=== PATIENT | female | born 1960 | race Caucasian/White ===

== ENCOUNTER 2017-03-07 23:04 | Emergency (ER) | payer OTHER ==
[~2017-03-07] VITALS: Ht 160 cm; Wt 83.9 kg
--- NOTE | 2017-03-07 23:45 | NUR ---
IV STARTED IN LAC. 18G.
[2017-03-07 23:54] LABS: BASOPHILS % (AUTO) 0.5 % (0.0-2.0); EOSINOPHILS # (AUTO) 0.1 /CMM (0.0-0.7); EOSINOPHILS % (AUTO) 1.6 % (0.0-6.0); HEMATOCRIT 42 % (33-45); HEMOGLOBIN 14.1 g/dL (11.5-14.8); LYMPHOCYTES # (AUTO) 1.8 /CMM (0.8-4.8); LYMPHOCYTES % (AUTO) 23.1 % (20.0-44.0); MEAN CORPUSCULAR HEMOGLOBIN 29 PG (26.0-33.0); MEAN CORPUSCULAR HGB CONC 34 g/dl (31.0-36.0); MEAN CORPUSCULAR VOLUME 87 fL (82-100); MONOCYTES # (AUTO) 0.6 /CMM (0.1-1.30); MONOCYTES % (AUTO) 7.3 % (2.0-12.0); NEUTROPHILS # (AUTO) 5.3 /CMM (1.8-8.9); NEUTROPHILS % (AUTO) 67.5 % (43.0-81.0); PLATELET COUNT (AUTO) 249 /CMM (150-450); RDW COEFFICIENT OF VARIATION 13.7 (11.5-15.0); RED BLOOD CELL COUNT(AUTO) 4.83 MIL/uL (4.0-5.2); WHITE BLOOD COUNT (AUTO) 7.9 K/uL (4.3-11.0)
[2017-03-07 23:58] LABS: APPEARANCE,URINE SL CLOUDY (CLEAR); BILIRUBIN,URINE NEGATIVE (NEGATIVE); BLOOD, URINE 2+ Ery/uL (NEGATIVE); COLOR,URINE YELLOW (YELLOW); KETONES,URINE NEGATIVE (NEGATIVE); LEUKOCYTE ESTERASE ,URINE 1+ (NEGATIVE); NITRITE, URINE NEGATIVE (NEGATIVE); PROTEIN,URINE NEGATIVE (NEGATIVE); UGLUCOSE NEGATIVE (NEGATIVE); UROBILINOGEN,URINE 0.2 EU/dL (0.2)
[2017-03-08] MEDS ORDERED: MORPHINE SULFATE INJ 2 MG/ML DISP.SYRIN IV ONE
[2017-03-08] MEDS ORDERED: IV NS 0.9% 500 ML BAG IV ONE
[2017-03-08] MEDS ORDERED: ONDANSETRON HCL/PF 4 MG/2 ML VIAL IVP ONE
[2017-03-08 00:02] LABS: ADD URINE CULTURE YES; BACTERIA,URINE 3+ /HPF (None Seen); RBC,URINE 21-50 /HPF (0-2); SQUAMOUS EPITHELIAL CELL,UR Few /HPF (None Seen); WBC,URINE 81-100 /HPF (0-3)
[2017-03-08 00:09] LABS: CALCIUM, SERUM 8.5 mg/dL (8.5-10.1); CARBON DIOXIDE 29 mmol/L (21-32); CHLORIDE 107 mmol/L (98-107); CREATININE 0.8 mg/dL (0.6-1.3); GFR 74 mL/min (>60); GLUCOSE 173 mg/dL (74-106); POTASSIUM 3.4 mmol/L (3.5-5.1); SODIUM SERUM 143 mmol/L (136-145); UREA NITROGEN, BLOOD 15 mg/dL (7-18)
--- NOTE | 2017-03-08 00:10 | NUR ---
PT RETURNED FROM CT AND WENT TO BED #8.
[2017-03-08 00:15] LABS: ALANINE AMINOTRANSFERASE 33 U/L (12-78); ALBUMIN 3.6 g/dL (3.4-5.0); ALKALINE PHOSPHATASE 87 U/L (46-116); ASPARTATE AMINOTRANSFERASE 24 U/L (15-37); BILIRUBIN,TOTAL 0.2 mg/dL (0.2-1.0); LIPASE 169 U/L (73-393); TOTAL PROTEIN, SERUM 7.1 g/dL (6.4-8.2)
[2017-03-08 00:20] LABS: TROPONIN I < 0.017 ng/mL (0.00-0.056)
[2017-03-08] MEDS ORDERED: MORPHINE SULFATE INJ 4 MG/ML DISP.SYRIN ONE (00:31)
[2017-03-08] MEDS ORDERED: ONDANSETRON HCL/PF 4 MG/2 ML VIAL ONE (00:31)
[2017-03-08] MEDS ORDERED: IV NS 0.9% 500 ML IV ONE (00:31)
[2017-03-08] MEDS ORDERED: IV SET PRIMARY 1 EA INFUS.SET MC ONE (00:31)
--- NOTE | 2017-03-08 00:46 | NUR ---
Zak balderas in ED - 03/08/17 at 0047 by [email or web address] PT RETURNED FROM CT.
--- NOTE | 2017-03-08 01:06 | NUR ---
IV removed. Catheter intact and site benign. Pressure and 4x4 applied to site. No bleeding noted. Patient discharged to home in stable condition. Written and verbal after care instructions given. Patient verbalizes understanding of instruction AND RX. PT LEFT VIA WC.
[2017-03-08 01:08] VITALS: BP 127/63
== END 2017-03-08 01:08 | disposition home or self-care (01) ==
LOC: ER 23:04
DX: N39.0 Urinary tract infection, site not specified (principal); I10 Essential (primary) hypertension; Z90.49 Acquired absence of other specified parts of digestive tract
CPT/HCPCS: 36415; 76705-TC; 80048-TC; 80076-TC; 81000-TC; 83690-TC; 84484-TC; 85025-TC; 87086-TC; 87186-TC; A4606; J2270; J2405; J7040; Z7610

== ENCOUNTER 2020-11-26 13:59 | Inpatient (IN) | payer OTHER ==
[~2020-11-26] VITALS: Ht 152.4 cm; Wt 85.9 kg
--- NOTE | 2020-11-26 14:40 | NUR ---
BIBDAUGHTER C/O SOB, CP RAD TO MID BACK, COUGH. COVID+ 11/17/20. PATIENT A/OX4, BELARUSIAN SPEAKING. BREATHING SLIGHTLY RAPID, ON ROOM AIR WITH 88%, PLACED ON 2LPM VIA NC WITH SPO2 OF 93%. NO DISTRESS NOTED. NEEDS ATTENDED.
--- NOTE | 2020-11-26 14:50 | NUR ---
IV LINE ESTABLISHED, BLOOD DRAWN AND SENT TO LAB.
[2020-11-26] MEDS ORDERED: DEXAMETHASONE SOD PHOSPHATE 10 MG/ML VIAL IV ONE (15:00)
[2020-11-26] MEDS ORDERED: METF-881 PO (15:03)
[2020-11-26] MEDS ORDERED: ATOR20TA PO (15:03)
[2020-11-26] MEDS ORDERED: LISI10TA29 PO (15:03)
[2020-11-26 15:06] LABS: BASOPHILS % (AUTO) 0.1 % (0.0-2.0); HEMATOCRIT 43 % (33-45); HEMOGLOBIN 14.9 g/dL (11.5-14.8); LYMPHOCYTES # (AUTO) 0.6 /CMM (0.8-4.8); LYMPHOCYTES % (AUTO) 12.6 % (20.0-44.0); MEAN CORPUSCULAR HGB CONC 35 g/dl (31.0-36.0); MEAN CORPUSCULAR VOLUME 87 fL (82-100); MONOCYTES # (AUTO) 0.3 /CMM (0.1-1.30); MONOCYTES % (AUTO) 6.1 % (2.0-12.0); NEUTROPHILS # (AUTO) 4.1 /CMM (1.8-8.9); NEUTROPHILS % (AUTO) 81.2 % (43.0-81.0); PLATELET COUNT (AUTO) 163 /CMM (150-450); RED BLOOD CELL COUNT(AUTO) 4.88 MIL/uL (4.0-5.2)
--- NOTE | 2020-11-26 15:19 | NUR ---
GAVE MOVESHEET AND CLINICALS TO ADMITTING FOR INSURANCE
[2020-11-26 15:24] LABS: CARBON DIOXIDE 30 mmol/L (21-32); CHLORIDE 100 mmol/L (98-107); CREATININE 0.6 mg/dL (0.6-1.3); GLUCOSE 203 mg/dL (74-106); POTASSIUM 3.5 mmol/L (3.5-5.1); SODIUM SERUM 138 mmol/L (136-145); UREA NITROGEN, BLOOD 6 mg/dL (7-18)
[2020-11-26] MEDS ORDERED: CEFTRIAXONE 1GM BAG (ER ONLY) 50 ML IV ONE (15:26)
[2020-11-26] MEDS ORDERED: DEXAMETHASONE SOD PHOSPHATE 10 MG/ML VIAL ONE (15:26)
[2020-11-26 15:29] LABS: BILIRUBIN,URINE NEGATIVE (NEGATIVE); COLOR,URINE YELLOW (YELLOW); LEUKOCYTE ESTERASE ,URINE NEGATIVE (NEGATIVE); NITRITE, URINE NEGATIVE (NEGATIVE); PROTEIN,URINE NEGATIVE (NEGATIVE); UGLUCOSE NEGATIVE (NEGATIVE); UROBILINOGEN,URINE 0.2 EU/dL (0.2)
[2020-11-26] MEDS ORDERED: IV NS 0.9% 1,000 ML BAG IV ONE (15:30)
[2020-11-26] MEDS ORDERED: CEFTRIAXONE 1 G in IV D5W 50 ML IV ONE (15:30)
[2020-11-26] MEDS ORDERED: AZITHROMYCIN 500 MG in IV D5W 250 ML IV ONE (15:30)
[2020-11-26 15:34] LABS: D-DIMER 0.6 mg/L(FEU (0.17-0.50)
[2020-11-26 15:37] LABS: ALANINE AMINOTRANSFERASE 47 U/L (12-78); ALBUMIN 3.4 g/dL (3.4-5.0); ALKALINE PHOSPHATASE 85 U/L (46-116); ASPARTATE AMINOTRANSFERASE 29 U/L (15-37); BILIRUBIN,TOTAL 0.4 mg/dL (0.2-1.0); TOTAL PROTEIN, SERUM 7.5 g/dL (6.4-8.2)
[2020-11-26 15:38] LABS: WBC,URINE 0-2 /HPF (0-3)
[2020-11-26 15:39] LABS: BACTERIA,URINE None seen /HPF (None Seen)
[2020-11-26 16:02] LABS: B-TYPE NATRIURETIC PEPTIDE 57 PG/ML (0-125)
[2020-11-26 17:24] LABS: FERRITIN 973 ng/mL (8-388)
[2020-11-26] MEDS ORDERED: ONDANSETRON HCL/PF 4 MG/2 ML VIAL IVP PRN (18:00)
[2020-11-26] MEDS ORDERED: ACETAMINOPHEN 325 MG TABLET PO PRN (18:00)
[2020-11-26] MEDS ORDERED: ALBUTEROL SULFATE 8 GM HFA.AER.AD IH PRN (18:00)
[2020-11-26] MEDS ORDERED: ENOXAPARIN SODIUM 40 MG/0.4 ML DISP.SYRIN SQ SCH (18:30)
[2020-11-26] MEDS ORDERED: DEXTROSE 50%-WATER 50 ML DISP.SYRIN IV PRN (18:30)
[2020-11-26] MEDS ORDERED: ENOXAPARIN SODIUM 40 MG/0.4 ML DISP.SYRIN SQ ONE (18:38)
--- NOTE | 2020-11-26 19:00 | NUR ---
PER LAB COVID RESULT POSITIVE.
[2020-11-26] MEDS ORDERED: HYDROCODONE/APAP 5/325MG TABLET ONE (19:20)
[2020-11-26] MEDS: HYDROCODONE/APAP 5/325MG TABLET PO PRN (19:26)
--- NOTE | 2020-11-26 20:10 | NUR ---
PT WAS PLACED ON 2L NC, SAT 94%. PLACED ON 4L NC NOW SAT 100%.
[2020-11-26] MEDS: BLOOD SUGAR DIAGNOSTIC 1 EACH STRIP IN SCH (21:27)
[2020-11-26] MEDS ORDERED: INSULIN REGULAR, HUMAN 100 UNIT/ML 10 ML VIAL ONE (21:29)
[2020-11-26] MEDS: INSULIN REGULAR, HUMAN 100 UNIT/ML 3 ML VIAL SQ PRN (21:33)
--- NOTE | 2020-11-27 00:42 | NUR ---
Zak balderas in ED - 11/27/20 at 0312 by EVICTOR PT PULLED OUT IV BY ACCIDENT. NEW LINE ESTABLISHED RAC 20G
--- NOTE | 2020-11-27 03:12 | NUR ---
PT NOTED ASLEEP, VSS.
[2020-11-27 04:57] LABS: BASOPHILS % (AUTO) 0.1 % (0.0-2.0); EOSINOPHILS % (AUTO) 0.1 % (0.0-6.0); HEMATOCRIT 40 % (33-45); HEMOGLOBIN 13.8 g/dL (11.5-14.8); LYMPHOCYTES # (AUTO) 0.9 /CMM (0.8-4.8); MEAN CORPUSCULAR HGB CONC 35 g/dl (31.0-36.0); MEAN CORPUSCULAR VOLUME 87 fL (82-100); MONOCYTES # (AUTO) 0.4 /CMM (0.1-1.30); MONOCYTES % (AUTO) 10.5 % (2.0-12.0); NEUTROPHILS # (AUTO) 2.4 /CMM (1.8-8.9); NEUTROPHILS % (AUTO) 65.3 % (43.0-81.0); PLATELET COUNT (AUTO) 185 /CMM (150-450); RED BLOOD CELL COUNT(AUTO) 4.54 MIL/uL (4.0-5.2); WHITE BLOOD COUNT (AUTO) 3.6 K/uL (4.3-11.0)
[2020-11-27 05:17] LABS: ALBUMIN 2.9 g/dL (3.4-5.0); BILIRUBIN,TOTAL 0.4 mg/dL (0.2-1.0); CALCIUM, SERUM 8.5 mg/dL (8.5-10.1); CREATININE 0.6 mg/dL (0.6-1.3); POTASSIUM 3.9 mmol/L (3.5-5.1); TOTAL PROTEIN, SERUM 6.8 g/dL (6.4-8.2)
--- NOTE | 2020-11-27 05:45 | NUR ---
PT PROVIDED WITH BILLY PIERCE.
[2020-11-27] MEDS: BLOOD SUGAR DIAGNOSTIC 1 EACH STRIP IN SCH ×4 (07:48→22:51)
[2020-11-27] MEDS: INSULIN REGULAR, HUMAN 100 UNIT/ML 3 ML VIAL SQ PRN ×4 (08:04→22:52)
--- NOTE | 2020-11-27 08:04 | NUR ---
PT PROVIDED WITH BREAKFAST
[2020-11-27] MEDS ORDERED: DEXAMETHASONE SOD PHOSPHATE 10 MG/ML VIAL ONE (08:14)
[2020-11-27] MEDS ORDERED: DOXYCYCLINE HYCLATE (100 MG) 100 MG TABLET ONE ×2 (08:15→22:46)
[2020-11-27] MEDS ORDERED: GUAIFENESIN/CODEINE 10 ML UDC PO PRN (08:30)
[2020-11-27] MEDS: DOXYCYCLINE HYCLATE (100 MG) 100 MG TABLET PO SCH ×2 (08:55→22:50)
[2020-11-27] MEDS: DEXAMETHASONE SOD PHOSPHATE 10 MG/ML VIAL IV SCH (08:55)
--- NOTE | 2020-11-27 08:55 | NUR ---
PT IN BED. AAOX4. NOT IN RESP DISTRESS. ON HUMIDIFIED O2 VIA NC @ 6LPM. BREATHING EVEN AND UNLABORED. PT HAD BREAKFAST. MEDICATION GIVEN ORDERED. WILL CONTINUE TO MONITOR
[2020-11-27] MEDS ORDERED: CEFTRIAXONE 1 G in IV D5W 50 ML IV SCH (12:00)
[2020-11-27] MEDS ORDERED: CEFTRIAXONE 1GM BAG (ER ONLY) 50 ML IV ONE (13:32)
[2020-11-27] MEDS ORDERED: ENOXAPARIN SODIUM 40 MG/0.4 ML DISP.SYRIN SQ ONE ×2 (13:34→22:46)
[2020-11-27] MEDS: ENOXAPARIN SODIUM 40 MG/0.4 ML DISP.SYRIN SQ SCH ×2 (13:40→22:46)
[2020-11-27] MEDS ORDERED: REMDESIVIR (CHARGED) 200 MG, *LOADING DOSE 1 EA in IV NS 0.9% 210 ML IV ONE (15:00)
--- NOTE | 2020-11-27 19:45 | NUR ---
PT HERE FOR COVID PNA, REC'D PT IN BED, ON 6L HUMIDIFIED O2 ON NC. SAT ABOVE 92%, NOT IN ANY DISTRESS, SPEAKS IN FULL SENTENCES, DENIES ANY CP, NEEDS MET, WILL CONT TO MONITOR.
[2020-11-28 05:42] LABS: HEMATOCRIT 39 % (33-45); HEMOGLOBIN 13.4 g/dL (11.5-14.8); LYMPHOCYTES # (AUTO) 1.2 /CMM (0.8-4.8); LYMPHOCYTES % (AUTO) 11.4 % (20.0-44.0); MEAN CORPUSCULAR HGB CONC 35 g/dl (31.0-36.0); MEAN CORPUSCULAR VOLUME 87 fL (82-100); MONOCYTES # (AUTO) 0.7 /CMM (0.1-1.30); MONOCYTES % (AUTO) 6.3 % (2.0-12.0); NEUTROPHILS # (AUTO) 8.8 /CMM (1.8-8.9); NEUTROPHILS % (AUTO) 82.3 % (43.0-81.0); PLATELET COUNT (AUTO) 229 /CMM (150-450); RED BLOOD CELL COUNT(AUTO) 4.44 MIL/uL (4.0-5.2); WHITE BLOOD COUNT (AUTO) 10.7 K/uL (4.3-11.0)
[2020-11-28 05:54] LABS: ALBUMIN 2.9 g/dL (3.4-5.0); BILIRUBIN,DIRECT 0.2 mg/dL (0.0-0.2); BILIRUBIN,TOTAL 0.4 mg/dL (0.2-1.0); CALCIUM, SERUM 8.7 mg/dL (8.5-10.1); CREATININE 0.5 mg/dL (0.6-1.3); POTASSIUM 3.5 mmol/L (3.5-5.1); TOTAL PROTEIN, SERUM 6.8 g/dL (6.4-8.2)
--- NOTE | 2020-11-28 06:00 | NUR ---
NO ACUTE EVENTS, VSS, NAD WCTM
--- NOTE | 2020-11-28 07:30 | NUR ---
RECEIVED REPORT FROM JOHNNY VALENTE FOR AKILAH. PT IS AAOX4, NOT IN RESPIRATORY DISTRESS, V/S STABLE, KEPT RESTED AND COMFORTABLE. WILL CONTINUE TO MONITOR.
[2020-11-28] MEDS: BLOOD SUGAR DIAGNOSTIC 1 EACH STRIP IN SCH ×4 (07:56→21:33)
[2020-11-28] MEDS ORDERED: ENOXAPARIN SODIUM 40 MG/0.4 ML DISP.SYRIN SQ ONE (08:16)
[2020-11-28] MEDS ORDERED: DOXYCYCLINE HYCLATE (100 MG) 100 MG TABLET ONE (08:17)
[2020-11-28] MEDS ORDERED: DEXAMETHASONE SOD PHOSPHATE 10 MG/ML VIAL ONE (08:17)
[2020-11-28] MEDS: DOXYCYCLINE HYCLATE (100 MG) 100 MG TABLET PO SCH (08:23)
[2020-11-28] MEDS: DEXAMETHASONE SOD PHOSPHATE 10 MG/ML VIAL IV SCH (08:23)
[2020-11-28] MEDS: ENOXAPARIN SODIUM 40 MG/0.4 ML DISP.SYRIN SQ SCH ×2 (08:24→21:32)
--- NOTE | 2020-11-28 08:55 | NUR ---
SIN MOORE AT BEDSIDE FOR EVAL.
[2020-11-28] MEDS ORDERED: LORAZEPAM INJ 2 MG/ML VIAL IV PRN (09:30)
--- NOTE | 2020-11-28 11:00 | NUR ---
GOT BED 201-
--- NOTE | 2020-11-28 11:13 | NUR ---
REPORT GIVEN TO INDU TURNER FOR AKILAH.
--- NOTE | 2020-11-28 11:32 | NUR ---
PATIENT TRANSFERRED TO ROOM 201 VIA ACLS PROTOCOL, VSS. NO DISTRESS NOTED, ON 3LPM VIA NC.
[2020-11-28 12:00] VITALS: BP 103/69
--- NOTE | 2020-11-28 12:00 | NUR ---
DRAFTER MECHANICAL NOTE RECEIVED PATIENT FROM ER. PATIENT IS ALERT AND ORIENTED X 3. ABLE TO MAKE NEEDS KNOWN. IV ACCESS TO RIGHT AC INTACT AND PATENT. CONTINENT OF BOWEL AND BLADDER. ABLE TO AMBULATE TO RESTROOM WITH MINIMAL ASSIST. CONTINUES ON O2 6L VIA NC WITH NO SIGNS OR SYMPTOMS OF RESPIRATORY DISTRESS. PATIENT ORIENTED TO ROOM AND UNIT. CALL LIGHT WITHIN REACH. ASPIRATION, FALL AND SAFETY PRECAUTIONS MAINTAINED. WILL CONTINUE TO MONITOR.
[2020-11-28] MEDS: INSULIN REGULAR, HUMAN 100 UNIT/ML 3 ML VIAL SQ PRN ×3 (13:02→21:32)
[2020-11-28] MEDS: REMDESIVIR (CHARGED) 100 MG in IV NS 0.9% 100 ML IV SCH (14:23)
[2020-11-28 15:59] VITALS: BP 118/64
[2020-11-28 16:00] VITALS: BP 118/64
--- NOTE | 2020-11-28 18:31 | NUR ---
OIL BURNER SERVICER AND INSTALLER CLOSING NOTE PATIENT IS CURRENTLY SITTING IN BED WHILE WATCHING TV. AWAKE, ALERT AND ORIENTED X 3. ABLE TO MAKE NEEDS KNOWN. NO COMPLAINTS OF PAIN THIS SHIFT. IV ACCESS TO RIGHT AC INTACT AND PATENT. ADMINISTERED REMDESIVIR THIS SHIFT WITH PATIENT TOLERATING WELL. VS: BP 118/64 HR 94 RR 20 T 98.2 O2 SAT 92% ON 6L O2 VIA NC. CALL LIGHT WITHIN REACH. ASPIRATION, FALL AND SAFETY PRECAUTIONS MAINTAINED. WILL ENDORSE PLAN OF CARE TO ONCOMING SHIFT.
--- NOTE | 2020-11-28 19:30 | NUR ---
TELE/RN OPENING NOTES RECEIVED PATIENT IN BED RESTING. PATIENT IS ALERT AND ORIENTED X 4. PATIENT BREATHING IS EVEN AND UNLABORED. NO SIGNS OF SOB OR RESPIRATORY DISTRESS NOTED. PATIENT PATIENT HAS IV ACCESS ON RIGHT AC #20G INTACT. SAFETY MEASURES ARE IN PLACE, BED IS LOCKED AND PLACED IN THE LOWEST POSITION, CALL LIGHT IS WITHIN REACH. WILL CONTINUE TO MONITOR THROUGH OUT SHIFT.
[2020-11-28 20:00] VITALS: BP 123/66
[2020-11-28] MEDS: TEMAZEPAM 15 MG CAPSULE PO PRN (21:31)
--- NOTE | 2020-11-28 21:40 | NUR ---
TELE/RN NOTES PATIENT REQUESTING FOR SLEEPING AID. PATIENT GIVEN RESTORIL 15 MG PO. WILL CONTINUE TO MONITOR.
[2020-11-29] VITALS (9 sets, daily range): BP systolic 128–162; BP diastolic 63–86
[2020-11-29] MEDS: HYDROCODONE/APAP 5/325MG TABLET PO PRN (03:58)
--- NOTE | 2020-11-29 04:00 | NUR ---
TELE/RN NOTES PATIENT STATING PAIN AND DISCOMFORT. PATIENT GIVEN NORCO 5 MG PO. WILL CONTINUE TO MONITOR.
[2020-11-29] MEDS: BLOOD SUGAR DIAGNOSTIC 1 EACH STRIP IN SCH ×4 (06:35→21:53)
[2020-11-29] MEDS: INSULIN REGULAR, HUMAN 100 UNIT/ML 3 ML VIAL SQ PRN ×4 (06:36→22:00)
--- NOTE | 2020-11-29 06:40 | NUR ---
TELE/RN CLOSING NOTES PATIENT IN BED RESTING. PATIENT IS ALERT AND ORIENTED X 4. PATIENT BREATHING IS EVEN AND UNLABORED. NO SIGNS OF SOB OR RESPIRATORY DISTRESS NOTED. TELE READING SR 71. PATIENT PATIENT HAS IV ACCESS ON RIGHT AC #20G INTACT. ALL NEEDS HAVE BEEN MET DURING SHIFT. SAFETY MEASURES ARE IN PLACE, BED IS LOCKED AND PLACED IN THE LOWEST POSITION, CALL LIGHT IS WITHIN REACH. WILL ENDORSE CARE TO DAY SHIFT NURSE.
--- NOTE | 2020-11-29 07:30 | NUR ---
AESTHETICS INSTRUCTOR OPENING NOTES RECEIVED PT ON BED, AAOX4, RWANDAN/ARMENIAN SPEAKING. RESPIRATION EVEN AND UNLABORED AT REST, WITH SOB IN EXERTION LIKE AMBULATION AND TRANSFER TO THE BATHROOM. PT ON 8LPM VIA N/C, TOLERATING WELL AT 93%. ABD SOFT AND NON DISTENDED WITH ACTIVE BOWEL SOUNDS. PT C/O GENERALIZED PAIN 04/08, DECLINED PAIN MEDICATION AND STATED SHE IS ABLE TO TOLERATE THE PAIN. SKIN WARM TO TOUCH AND DRY. IV SITE AT RAC PATENT IN FLUSHING, NO S/X OF INFILTRATION ON SITE. TELE MONITOR SHOWS SR 69. ON CONTACT/DROPLET ISOLATION DUE TO COVID-19 POSITIVE. BED IN LOW LOCKED POSITION, SRX2 UP FOR SAFETY, BLE OFFLOAD, CALL LIGHT WITHIN REACH. WILL CONTINUE TO EVALUATE CARE.
[2020-11-29 07:39] LABS: BASOPHILS % (AUTO) 0.1 % (0.0-2.0); HEMATOCRIT 39 % (33-45); HEMOGLOBIN 13.7 g/dL (11.5-14.8); LYMPHOCYTES % (AUTO) 10.4 % (20.0-44.0); MEAN CORPUSCULAR HGB CONC 35 g/dl (31.0-36.0); MEAN CORPUSCULAR VOLUME 87 fL (82-100); MONOCYTES # (AUTO) 0.8 /CMM (0.1-1.30); MONOCYTES % (AUTO) 8.6 % (2.0-12.0); NEUTROPHILS # (AUTO) 7.6 /CMM (1.8-8.9); NEUTROPHILS % (AUTO) 80.9 % (43.0-81.0); PLATELET COUNT (AUTO) 261 /CMM (150-450); RED BLOOD CELL COUNT(AUTO) 4.49 MIL/uL (4.0-5.2); WHITE BLOOD COUNT (AUTO) 9.4 K/uL (4.3-11.0)
[2020-11-29] MEDS: DEXAMETHASONE SOD PHOSPHATE 10 MG/ML VIAL IV SCH (08:04)
[2020-11-29] MEDS: ENOXAPARIN SODIUM 40 MG/0.4 ML DISP.SYRIN SQ SCH ×2 (08:04→20:22)
[2020-11-29 08:13] LABS: ALBUMIN 2.7 g/dL (3.4-5.0); BILIRUBIN,DIRECT 0.1 mg/dL (0.0-0.2); BILIRUBIN,TOTAL 0.5 mg/dL (0.2-1.0); CALCIUM, SERUM 8.4 mg/dL (8.5-10.1); CREATININE 0.6 mg/dL (0.6-1.3); POTASSIUM 3.5 mmol/L (3.5-5.1); TOTAL PROTEIN, SERUM 6.4 g/dL (6.4-8.2)
[2020-11-29 08:32] LABS: C-REACTIVE PROTEIN 5.5 mg/dL (0.0-0.9)
--- NOTE | 2020-11-29 10:30 | NUR ---
GUIDE FOREIGN TOUR NOTES TITRATED O2 FROM 8 TO 6LPM VIA N/C, PT SATING 93%, DENIES SOB. DENIES PAIN. WILL CONT TO MONITOR.
--- NOTE | 2020-11-29 11:20 | NUR ---
CLINICAL ENGINEERING MANAGER NOTES PT SEEN AND EVALUATED BY DR MOORE. NO NEW ORDER. WILL CONTINUE TO MONITOR.
[2020-11-29] MEDS: REMDESIVIR (CHARGED) 100 MG in IV NS 0.9% 100 ML IV SCH (15:38)
--- NOTE | 2020-11-29 19:03 | NUR ---
TRAY DRIER NOTES PT AAOX4, RESPONSIVE TO ALL STIMULI. TOLERATING O2 AT 6LPM VIA N/C SATING 93-94%, SOB IN EXERTION WITH BRP. DENIES PAIN AND DISCOMFORT. SKIN WARM TO TOUCH AND DRY. BMX1 TODAY. TELE MONITOR SHOWS SINUS RHYTHM. ON CONTACT/DROPLET ISOLATION FOR COVID-19. PPE UTILIZED PER HOSPITAL PROTOCOL. IV SITE INTACT, NO S/SX OF INFILTRATION. ALL CONCERNS ATTENDED, BED IN LOW LOCKED POSITION, SRX2 UP FOR SAFETY. ENDORSED CARE TO NEXT SHIFT.
--- NOTE | 2020-11-29 19:10 | NUR ---
watershed manager opening notes Pt is resting in bed comfortably. Pt is alert and orientedX4. Pt speaks Divehi and able to make needs known. Respiration on 6 L NC. No SOB. No S/S of distress noted. IV site at RAC# 20 is clean, intact and flushes well, and SL. Tele monitor showed SR HR at 84 bpm. Safety precautions is maintained. Bed at low position, brakes locked, side rails upX2 and call light is within reach. Will continue to monitor.
--- NOTE | 2020-11-29 19:28 | NUR ---
molding supervisor notes Received a phone call from lab Luan regarding Pt's blood CX result positive gram cocci in pairs and in chains. Informed and notified Dr. Marquez regarding lab result. informed that ID is on board and noted. Will continue to monitor.
[2020-11-29] MEDS: TEMAZEPAM 15 MG CAPSULE PO PRN (22:00)
--- NOTE | 2020-11-29 22:05 | NUR ---
cabinet worker notes Pt is having insomnia and requesting a sleeping pill. Administered restoril 15 mg/1 cap/po/prn as ordered for sleeping per pt' requested. Safety precautions is maintained. Will continue to monitor.
[2020-11-30] VITALS: BP 121/76
[2020-11-30 04:00] VITALS: BP 125/45
[2020-11-30 06:48] LABS: BASOPHILS % (AUTO) 0.1 % (0.0-2.0); HEMATOCRIT 40 % (33-45); HEMOGLOBIN 13.9 g/dL (11.5-14.8); MEAN CORPUSCULAR HGB CONC 35 g/dl (31.0-36.0); MEAN CORPUSCULAR VOLUME 86 fL (82-100); MONOCYTES # (AUTO) 0.8 /CMM (0.1-1.30); MONOCYTES % (AUTO) 10.6 % (2.0-12.0); NEUTROPHILS # (AUTO) 5.8 /CMM (1.8-8.9); NEUTROPHILS % (AUTO) 76.3 % (43.0-81.0); PLATELET COUNT (AUTO) 290 /CMM (150-450); WHITE BLOOD COUNT (AUTO) 7.6 K/uL (4.3-11.0)
--- NOTE | 2020-11-30 07:00 | NUR ---
ADMINISTRATIVE ASSISTANT OFFICE MANAGER OPENING NOTE RECEIVED PT AWAKE IN BED AT THIS TIME. AOX4. TURKS AND [place] ISLANDER SPEAKING. PT ABLE TO MAKE NEEDS KNOWN. NO SOB NOTED, NO S/S OF ANY APPARENT DISTRESS NOTED, NO S/O PAIN AT THIS TIME. PT NOTED ON EXTERNAL TELE VIBRATORY PILE DRIVER, READING SR 65. IV ACCESS NOTED IN RAC G#20 SL, INTACT, PATENT AND FLUSHING WELL. ASPIRATIONS AND SAFETY PRECAUTIONS IN PLACE AND MAINTAINED AT ALL TIMES. BED IN LOWEST LOCKED POSITION, SIDE RAILS UP, HOB ELEVATED, TABLE AND CALL LIGHT WITHIN REACH. WILL CONTINUE TO MONITOR.
--- NOTE | 2020-11-30 07:30 | NUR ---
sweatband drummer closing notes Pt is resting in bed comfortably. Pt is alert and orientedX4. Pt speaks Sami and able to make needs known. Respiration on 6 L NC with O2 sat is 97%. No SOB. No S/S of distress noted. IV site at RAC# 20 is clean, intact and flushes well, and SL. VS is stable. Afebrile. Tele monitor showed SR HR at 63 bpm. Routine meds were given as ordered. Safety precautions is maintained. Bed at low position, brakes locked, side rails upX2 and call light is within reach. Will endorse to morning nurse for AKILAH.
[2020-11-30 07:36] LABS: ALBUMIN 2.7 g/dL (3.4-5.0); BILIRUBIN,DIRECT 0.1 mg/dL (0.0-0.2); BILIRUBIN,TOTAL 0.5 mg/dL (0.2-1.0); CALCIUM, SERUM 8.6 mg/dL (8.5-10.1); CREATININE 0.5 mg/dL (0.6-1.3); POTASSIUM 3.6 mmol/L (3.5-5.1); TOTAL PROTEIN, SERUM 6.3 g/dL (6.4-8.2)
[2020-11-30] MEDS: BLOOD SUGAR DIAGNOSTIC 1 EACH STRIP IN SCH ×4 (07:50→22:30)
[2020-11-30] MEDS: INSULIN REGULAR, HUMAN 100 UNIT/ML 3 ML VIAL SQ PRN ×4 (07:54→22:32)
[2020-11-30 08:00] VITALS: BP 123/65
[2020-11-30] MEDS: ENOXAPARIN SODIUM 40 MG/0.4 ML DISP.SYRIN SQ SCH ×2 (09:03→20:52)
[2020-11-30] MEDS: DEXAMETHASONE SOD PHOSPHATE 10 MG/ML VIAL IV SCH (09:03)
[2020-11-30 12:00] VITALS: BP 144/80
--- NOTE | 2020-11-30 15:00 | NUR ---
PER DR MOORE, TITRATE PT FROM 6LPM VIA NC TO 4LPM VIA NC, TITRATE TOLERATED AND MONITOR. ORDERS READ BACK AND CARRIED OUT. WILL CONTINUE WITH PLAN OF CARE
[2020-11-30] MEDS: REMDESIVIR (CHARGED) 100 MG in IV NS 0.9% 100 ML IV SCH (15:26)
[2020-11-30] MEDS: LISINOPRIL (10MG) 10 MG TABLET PO SCH (15:31)
[2020-11-30 16:00] VITALS: BP 144/73
--- NOTE | 2020-11-30 18:55 | NUR ---
RN CLOSING NOTES PT AWAKE IN BED AT THIS TIME. PT REMAINED STABLE THROUGHOUT SHIFT. PT ON 4LPM VIA NC SATURATION @ 97% AT THIS TIME. ALL CARE, NEED, MEDICATIONS AND TREATMENT ADMINISTERED ANTICIPATED PER ORDER. PT KEPT CLEAN AND DRY. LINEN CHANGED AND KEPT CLEAN. PT ASSISTED TO BATHROOM. ASPIRATION, RESPIRATION AND SAFETY PRECAUTION IN PLACE AND MAINTAINED AT ALL TIMES. BED IN LOWEST LOCKED POSITION, HOB ELEVATED, SIDE RAILS UP X 2, CALL LIGHT AND TABLE WITHIN REACH. ENDORSED TO SUPERVISOR FLOOR ASSEMBLY NURSE FOR AKILAH
--- NOTE | 2020-11-30 19:49 | NUR ---
RN OPENING NOTES PT RECEIVED BEDSIDE. PT ALERT AND ORIENTED X4. ARABIC SPEAKING. ABLE TO MAKES NEEDS KNOWN. PT ON 2L NASAL CANNULA. TOLERATING WELL. NO SOB NOTED AT THIS TIME. NO DISTRESS, NO PAIN NOTED AT THIS TIME. PT SINUS RHYTHM 65. IV ACCESS RAC G#20. SALINE LOCK. INTACT, FLUSHING WELL, PATENT. NO OCCLUSIONS, NO SIGNS OF INFILTRATION. ISOLATION PRECATION IN PLACE. SAFETY PRECAUTIONS IN PLACE. WILL CONTINUE TO MONITOR O2 SATURATION AND FOR O2 TITRATION. WILL CONTINUE PLAN OF CARE.
[2020-11-30 20:00] VITALS: BP 134/85
[2020-11-30] MEDS: ATORVASTATIN 10 MG TABLET PO SCH (21:15)
[2020-12-01] VITALS (7 sets, daily range): BP systolic 116–143; BP diastolic 52–67
[2020-12-01] MEDS: HYDROCODONE/APAP 5/325MG TABLET PO PRN (06:01)
--- NOTE | 2020-12-01 06:11 | NUR ---
RN NOTE - NORMISA PT COMPLAIN OF ACHING, THROBBING BACK PAIN. RATE OF 8/. REQUEST FOR PAIN MEDICATION. ADMINISTERED NORCO @0600. WILL CONTINUE TO MONITOR. WILL REASSESS.
[2020-12-01] MEDS: INSULIN REGULAR, HUMAN 100 UNIT/ML 3 ML VIAL SQ PRN ×4 (06:34→22:09)
[2020-12-01 06:44] LABS: BASOPHILS % (AUTO) 0.1 % (0.0-2.0); EOSINOPHILS % (AUTO) 0.1 % (0.0-6.0); HEMATOCRIT 40 % (33-45); LYMPHOCYTES # (AUTO) 1.5 /CMM (0.8-4.8); LYMPHOCYTES % (AUTO) 17.8 % (20.0-44.0); MEAN CORPUSCULAR HGB CONC 35 g/dl (31.0-36.0); MEAN CORPUSCULAR VOLUME 86 fL (82-100); MONOCYTES # (AUTO) 0.9 /CMM (0.1-1.30); MONOCYTES % (AUTO) 11.3 % (2.0-12.0); NEUTROPHILS # (AUTO) 5.9 /CMM (1.8-8.9); NEUTROPHILS % (AUTO) 70.7 % (43.0-81.0); PLATELET COUNT (AUTO) 327 /CMM (150-450); RED BLOOD CELL COUNT(AUTO) 4.67 MIL/uL (4.0-5.2); WHITE BLOOD COUNT (AUTO) 8.3 K/uL (4.3-11.0)
--- NOTE | 2020-12-01 06:53 | NUR ---
RN CLOSING NOTES PT LAYING IN BED. PT ALERT AND ORIENTED X4. AMHARIC SPEAKING. ABLE TO MAKES NEEDS KNOWN. PT ON 2L NASAL CANNULA. TOLERATING WELL. NO SOB NOTED AT THIS TIME. NO DISTRESS, NO PAIN NOTED AT THIS TIME. IV ACCESS RAC G#20. SALINE LOCK. INTACT, FLUSHING WELL, PATENT. NO OCCLUSIONS, NO SIGNS OF INFILTRATION. PT 2200 BLOOD GLUCOSE 281. COVERED WITH 6 UNITS INSULIN. PT BLOOD GLUCOSE 0630, 142. COVERED WITH 2 UNITS OF INSULIN. AT 0600 PT COMPLAINS OF BACK PAIN 06/08. ADMINISTERED NORCO PRN. REASSESSED 12/09. PT COMPLIANT WITH MEDICATIONS. ISOLATION PRECAUTION IN PLACE. SAFETY PRECAUTIONS IN PLACE. CALL LIGHT WITHIN REACH. BED LOCK. SEMI FOWLERS. LOWEST POSITION. WILL CONTINUE TO MONITOR O2 SATURATION AND FOR O2 TITRATION. WILL ENDORSE TO UPCOMING SHIFT. WILL CONTINUE PLAN OF CARE.
[2020-12-01] MEDS: BLOOD SUGAR DIAGNOSTIC 1 EACH STRIP IN SCH ×4 (07:05→22:08)
[2020-12-01 07:25] LABS: ALBUMIN 2.7 g/dL (3.4-5.0); BILIRUBIN,DIRECT 0.1 mg/dL (0.0-0.2); BILIRUBIN,TOTAL 0.5 mg/dL (0.2-1.0); CALCIUM, SERUM 8.8 mg/dL (8.5-10.1); CREATININE 0.6 mg/dL (0.6-1.3); POTASSIUM 3.6 mmol/L (3.5-5.1); TOTAL PROTEIN, SERUM 6.3 g/dL (6.4-8.2)
--- NOTE | 2020-12-01 07:57 | NUR ---
COLLEGE RECRUITER NOTE PATIENT IN BED RESTING COMFORTABLY. PATIENT IN NO ACUTE DISTRESS. NO SOB NOTED. PATIENT BREATHING IS EVEN AND UNLABORED. PATIENT SAFETY PRECAUTIONS IN PLACE. ISOLATION PRECAUTIONS IN PLACE. PATIENT BED IS LOCKED AND IN LOWEST POSITION. CALL LIGHT WITHIN REACH. WILL CONTINUE TO MONITOR.
[2020-12-01] MEDS: ENOXAPARIN SODIUM 40 MG/0.4 ML DISP.SYRIN SQ SCH ×2 (09:08→21:03)
[2020-12-01] MEDS: LISINOPRIL (10MG) 10 MG TABLET PO SCH (09:09)
[2020-12-01] MEDS: DEXAMETHASONE SOD PHOSPHATE 10 MG/ML VIAL IV SCH (09:09)
[2020-12-01 13:30] LABS: EOSINOPHILS % (MANUAL) 1 % (0-4); LYMPHOCYTES % (MANUAL) 18 % (16-48); MONOCYTES % (MANUAL) 8 % (0-11.0); NEUTROPHILS % (MANUAL) 73 (42-76)
[2020-12-01] MEDS: REMDESIVIR (CHARGED) 100 MG in IV NS 0.9% 100 ML IV SCH (15:34)
--- NOTE | 2020-12-01 18:22 | NUR ---
MS RN NOTE PATIENT IN BED RESTING COMFORTABLY. PATIENT IN NO ACUTE DISTRESS. NO SOB NOTED. PATIENT BREATHING IS EVEN AND UNLABORED. PATIENT KEPT CLEAN, DRY, AND COMFORTABLE THROUGHOUT SHIFT. NEEDS AND CONCERNS ADDRESSED. PATIENT SAFETY PRECAUTIONS IN PLACE. ISOLATION PRECAUTIONS IN PLACE. PATIENT BED IS LOCKED AND IN LOWEST POSITION. CALL LIGHT WITHIN REACH. WILL ENDORSE CARE TO PM SHIFT FOR AKILAH.
--- NOTE | 2020-12-01 19:41 | NUR ---
RN OPENING NOTES PT RECEIVED BEDSIDE. PT LAYING IN BED AT THIS TIME. ALERT AND ORIENTED X4. ETHIOPIAN SPEAKING. ABLE TO MAKE NEEDS KNOWN. NO COMPLAINTS, NO PAIN, NO DISTRESS NOTED AT THIS TIME. PT ON 2L NASAL CANNULA. TOLERATING WELL. NO SOB NOTED AT THIS TIME. EVEN, UNLABORED BREATHING NOTED AT THIS TIME. PT IS AMBULATORY WITH MINIMAL ASSISTANCE. IV ACCESS RIGHT HAND #22. INTACT, PATENT, FLUSHES WELL. NO OCCLUSIONS, NO INFILTRATIONS. SALINE LOCK. LAST ACCUCHECK 324. PREVIOUS RN COVERED WITH 8 UNITS OF NORMAL SALINE. ISOLATION PRECAUTIONS IN PLACE. SAFETY PRECAUTIONS IN PLACE. BED LOCKED. LOWEST POSITION. SEMI FOWLERS. WILL CONTINUE TO MONITOR O2 SATURATION. IF PT O2 SAT. >95% WITH NC, WILL TRY TO CONVERT TO ROOM AIR TONIGHT. WILL CONTINUE PLAN OF CARE.
[2020-12-01] MEDS: ATORVASTATIN 10 MG TABLET PO SCH (21:03)
[2020-12-02] VITALS: BP 116/64
[2020-12-02 04:00] VITALS: BP 116/64
[2020-12-02 06:25] LABS: BASOPHILS % (AUTO) 0.2 % (0.0-2.0); EOSINOPHILS % (AUTO) 0.4 % (0.0-6.0); HEMATOCRIT 39 % (33-45); LYMPHOCYTES # (AUTO) 1.7 /CMM (0.8-4.8); LYMPHOCYTES % (AUTO) 20.3 % (20.0-44.0); MEAN CORPUSCULAR HGB CONC 36 g/dl (31.0-36.0); MEAN CORPUSCULAR VOLUME 86 fL (82-100); MONOCYTES % (AUTO) 11.7 % (2.0-12.0); NEUTROPHILS # (AUTO) 5.7 /CMM (1.8-8.9); NEUTROPHILS % (AUTO) 67.4 % (43.0-81.0); PLATELET COUNT (AUTO) 337 /CMM (150-450); RED BLOOD CELL COUNT(AUTO) 4.59 MIL/uL (4.0-5.2); WHITE BLOOD COUNT (AUTO) 8.5 K/uL (4.3-11.0)
[2020-12-02] MEDS: INSULIN REGULAR, HUMAN 100 UNIT/ML 3 ML VIAL SQ PRN ×4 (06:42→21:28)
[2020-12-02 07:06] LABS: ALBUMIN 2.7 g/dL (3.4-5.0); BILIRUBIN,DIRECT 0.1 mg/dL (0.0-0.2); BILIRUBIN,TOTAL 0.5 mg/dL (0.2-1.0); CALCIUM, SERUM 8.5 mg/dL (8.5-10.1); CREATININE 0.6 mg/dL (0.6-1.3); MAGNESIUM 2.3 mg/dL (1.8-2.4); PHOSPHORUS 3.4 mg/dL (2.5-4.9); POTASSIUM 3.9 mmol/L (3.5-5.1); TOTAL PROTEIN, SERUM 6.2 g/dL (6.4-8.2)
--- NOTE | 2020-12-02 07:27 | NUR ---
RN CLOSING NOTES PT LAYING. CALM, COOPERATIVE. PT ALERT AND ORIENTED X4. EAST TIMOR[place] SPEAKING. ABLE TO MAKES NEEDS KNOWN. PT ON 2L NASAL CANNULA. TOLERATING WELL. NO SOB NOTED AT THIS TIME. NO DISTRESS, NO PAIN NOTED AT THIS TIME. PT SINUS RHYTHM 65. IV ACCESS RAC G#20. SALINE LOCK. INTACT, FLUSHING WELL, PATENT. NO OCCLUSIONS, NO SIGNS OF INFILTRATION. ISOLATION PRECAUTION IN PLACE. SAFETY PRECAUTIONS IN PLACE. WILL ENDORSE TO NEXT SHIFT. WILL CONTINUE TO MONITOR O2 SATURATION AND FOR O2 TITRATION. WILL CONTINUE PLAN OF CARE.
--- NOTE | 2020-12-02 07:30 | NUR ---
MS/RN OPENING NOTE Received patient awake in bed, A&O x 4. No complaints of pain/discomfort at this time. Breathing even and non-labored on 2L oxygen via NC, no SOB noted, saturating at 95%. No respiratory or cardiac distress noted. IV access noted on R hand #[id number], patent and intact, and flushing well. Bed locked to its lowest position, side rails x 2 up, call light in hand. Will continue with current medical management.
[2020-12-02 08:00] VITALS: BP 116/60
[2020-12-02] MEDS: DEXAMETHASONE SOD PHOSPHATE 10 MG/ML VIAL IV SCH (08:15)
[2020-12-02] MEDS: BLOOD SUGAR DIAGNOSTIC 1 EACH STRIP IN SCH ×4 (08:15→22:11)
[2020-12-02] MEDS: ENOXAPARIN SODIUM 40 MG/0.4 ML DISP.SYRIN SQ SCH ×2 (08:16→21:14)
[2020-12-02] MEDS: LISINOPRIL (10MG) 10 MG TABLET PO SCH (08:16)
--- NOTE | 2020-12-02 09:30 | NUR ---
MS/RN NOTE Weaned off patient from oxygen, currently tolerating well at 91-92%. No respiratory distress noted.
[2020-12-02 11:29] LABS: BAND % (MANUAL) 4 % (0.0-5.0); LYMPHOCYTES % (MANUAL) 14 % (16-48); MONOCYTES % (MANUAL) 15 % (0-11.0); NEUTROPHILS % (MANUAL) 67 (42-76)
[2020-12-02 12:07] LABS: *HIV-1 RNA BY PCR <20 copies/mL (.)
[2020-12-02 16:00] VITALS: BP 142/67
--- NOTE | 2020-12-02 18:49 | NUR ---
MS/RN CLOSING NOTE Patient awake in bed, A&O x 4. All needs met and attended to. No complaints of pain/discomfort at this time. Breathing even and non-labored on RA, no SOB noted, saturating at 92-93%. No respiratory or cardiac distress noted. IV access noted on R hand #[id number], patent and intact, and flushing well. Fall precautions maintained. Will endorse to retail shift supervisor nurse.
[2020-12-02 20:00] VITALS: BP 136/68
--- NOTE | 2020-12-02 20:00 | NUR ---
RN NOTE RECEIVED PT IN BED A/A/O X4. PT IS ON 2 L VIA NC SATING 97%, PT HAS UNLABORED BREATHING, SAFETY MEASURES IN PLACE.
[2020-12-02] MEDS: ATORVASTATIN 10 MG TABLET PO SCH (21:13)
[2020-12-03 07:17] LABS: BASOPHILS % (AUTO) 0.2 % (0.0-2.0); EOSINOPHILS % (AUTO) 0.4 % (0.0-6.0); HEMATOCRIT 41 % (33-45); HEMOGLOBIN 14.5 g/dL (11.5-14.8); LYMPHOCYTES # (AUTO) 1.9 /CMM (0.8-4.8); LYMPHOCYTES % (AUTO) 19.7 % (20.0-44.0); MEAN CORPUSCULAR HGB CONC 35 g/dl (31.0-36.0); MEAN CORPUSCULAR VOLUME 86 fL (82-100); MONOCYTES % (AUTO) 10.9 % (2.0-12.0); NEUTROPHILS # (AUTO) 6.5 /CMM (1.8-8.9); NEUTROPHILS % (AUTO) 68.8 % (43.0-81.0); PLATELET COUNT (AUTO) 379 /CMM (150-450); RED BLOOD CELL COUNT(AUTO) 4.82 MIL/uL (4.0-5.2); WHITE BLOOD COUNT (AUTO) 9.4 K/uL (4.3-11.0)
--- NOTE | 2020-12-03 07:36 | NUR ---
RN NOTE PT REMAINED STABLE DURING MY SHIFT NO ACUTE CHANGES REPORT GIVEN TO INCOMING PT FOR AKILAH.
--- NOTE | 2020-12-03 08:15 | NUR ---
RN Opening note Received patient in bed, awaken able to responds all stimuli, Pt does no c/o pain or distress. Skin is warm to touch keep clean/dry intact IV site, respiratory even and unlabored with oxygen at 2L via NC with high flow O2sat 97%. Kept locked bed with elevated HOB for aspiration precaution and ensure airway and lowest bed foe safety. Call light within reach, will continue to monitor.
[2020-12-03 08:16] LABS: CALCIUM, SERUM 8.6 mg/dL (8.5-10.1); CREATININE 0.6 mg/dL (0.6-1.3); MAGNESIUM 2.3 mg/dL (1.8-2.4); PHOSPHORUS 3.8 mg/dL (2.5-4.9); POTASSIUM 3.9 mmol/L (3.5-5.1)
[2020-12-03] MEDS: DEXAMETHASONE SOD PHOSPHATE 10 MG/ML VIAL IV SCH (08:41)
[2020-12-03] MEDS: ENOXAPARIN SODIUM 40 MG/0.4 ML DISP.SYRIN SQ SCH (08:42)
[2020-12-03] MEDS: INSULIN REGULAR, HUMAN 100 UNIT/ML 3 ML VIAL SQ PRN ×2 (08:43→11:55)
[2020-12-03] MEDS: LISINOPRIL (10MG) 10 MG TABLET PO SCH (08:44)
[2020-12-03] MEDS: BLOOD SUGAR DIAGNOSTIC 1 EACH STRIP IN SCH ×2 (08:50→12:14)
[2020-12-03] MEDS ORDERED: ASPI-992 PO (11:28)
[2020-12-03] MEDS ORDERED: DEXA6TAB6 PO (11:28)
[2020-12-03 12:14] LABS: LYMPHOCYTES % (MANUAL) 23 % (16-48); MONOCYTES % (MANUAL) 6 % (0-11.0); NEUTROPHILS % (MANUAL) 71 (42-76)
--- NOTE | 2020-12-03 13:05 | NUR ---
Patient discharge to home and given instruction TONIA/Yelena include new medication, side effect. Patient in stable condition, O2sat 96% on room air.[email or web address] Addendum: 12/03/20 at 1345 by SHARRON ANDRES RN Error
--- NOTE | 2020-12-03 13:05 | NUR ---
Patient discharge to home and given instruction DTR/Yelena include new medication, side effect. Patient in stable condition, O2sat 96% on room air, denies difficulty breathing.
== END 2020-12-03 13:05 | disposition home or self-care (01) | DRG 177 ==
LOC: ER 14:04 → TRANSITION 16:42 → TELE2 11-28 11:31 → MEDSG2 12-01 11:18
PROVIDERS: ADMIT Nurse Practitioner Acute Care; ATTEND Student in an Organized Health Care Education/Training Program
PROC: XW033E5 Introduction of Remdesivir Anti-infective into Peripheral Vein, Percutaneous Approach, New Technology Group 5 (ICD-10-PCS; principal; 2020-11-27)
DX: U07.1 COVID-19 (principal); J12.82 Pneumonia due to coronavirus disease 2019; J15.9 Unspecified bacterial pneumonia; J96.01 Acute respiratory failure with hypoxia; I10 Essential (primary) hypertension; E78.5 Hyperlipidemia, unspecified; Z79.899 Other long term (current) drug therapy; Z79.84 Long term (current) use of oral hypoglycemic drugs; E11.65 Type 2 diabetes mellitus with hyperglycemia; E66.01 Morbid (severe) obesity due to excess calories; Z68.37 Body mass index [BMI] 37.0-37.9, adult
CPT/HCPCS: 36415; 71045-TC; 80048-TC; 80053-TC; 80076-TC; 81001; 82728-TC; 82962-TC; 83605-TC; 83615-TC; 83735-TC; 83880; 84100-TC; 84484-TC; 85025-TC; 85378-TC; 85610-TC; 85730-TC; 86140-TC; 86480; 86803; 87040-TC; 87081-TC; 87536; 87899; A4216; G0378; J0456; J0696; J1100; J1650; J1815; J7030; J7050; J7060; U0003